=== PATIENT | male | born 1990 ===

== ENCOUNTER 2017-06-28 12:06 | Emergency (ER) | payer MEDICAID, OTHER ==
[2017-06-28 12:31] VITALS: BP 105/75; PULSE 65; RESP 16; TEMP 98.3; O2SAT 100
[2017-06-28] MEDS ORDERED: Lidocaine 1% Inj (20ml) IJ STA (12:38)
--- NOTE | 2017-06-28 12:46 | ED PDOC ---
HPI: Wound Care - HPI Time Seen by Provider: 06/28/17 12:33 Chief Complaint (Nursing): Abnormal Skin Integrity Chief Complaint (Provider): right hand laceration History Per: Patient Exam Limitations: no limitations, physical impairment Onset/Duration Of Symptoms: Mins Current Symptoms Are (Timing): Still Present Additional Complaint(s): Surjit Carrington, a 26 year old right hand dominant male, presents to the ED with a laceration to hand sustained when he was at work using a saw and accidentally cut his hand. Patient denies any numbness or tingling to affected area. He has mild throbbing pain to affected area. Tetanus is up to date. Past Medical History Reviewed: Historical Data, Nursing Documentation, Vital Signs Vital Signs: Last Vital Signs Temp 98.3 F 06/28/17 12:29 Pulse 65 06/28/17 12:29 Resp 16 06/28/17 12:29 BP 105/75 06/28/17 12:29 Pulse Ox 100 06/28/17 12:29 - Medical History PMH: No Chronic Diseases - Family History Family History: States: No Known Family Hx - Living Arrangements Living Arrangements: With Family - Social History Current smoker - smoking cessation education provided: No Alcohol: None Drugs: Denies - Immunization History Hx Tetanus Toxoid Vaccination: Yes - Home Medications Home Medications: Ambulatory Orders Medication Instructions Recorded No Known Home Med 06/28/17 - Allergies Allergies/Adverse Reactions: Allergies Allergy/AdvReac Type Severity Reaction Status Date / Time No Known Allergies Allergy Verified 06/28/17 12:29 Review of Systems ROS Statement: Except As Marked, All Systems Reviewed And Found Negative Musculoskeletal: Positive for: Other (Laceration to right hand) Physical Exam - Reviewed Nursing Documentation Reviewed: Yes Vital Signs Reviewed: Yes - Physical Exam Appears: Positive for: Non-toxic, No Acute Distress Skin: Positive for: Normal Color. Negative for: Rash Eye Exam: Positive for: Normal appearance Extremity: Positive for: Normal ROM (Full ROM of all digits of right hand.), Other (2 cm superficial laceration to dorsum of right hand overlying region of proximal first metacarpal; No active bleeding; irregular wound margins noted, normal sensation surrounding wound, normal distal sensation). Negative for: Tenderness, Deformity, Swelling Neurologic/Psych: Positive for: Alert, Oriented - ECG O2 Sat by Pulse Oximetry: 100 (RA) Pulse Ox Interpretation: Normal Procedure: Wound Repair - Time Performed Time Performed: 12:45 - Time Out Time Out: Side verified, Site verified, Patient ID confirmed, Sterile procedures obs. - Consent Obtained Consent obtained: Verbal - Performed by Performed by: Mid-level Provider - Indications Indication(s):: Laceration - Location Location:: Right, Hand Finger:: Thumb Dimensions Length cm: 2cm - Anesthetic Technique Local/Regional Anesthetic:: Lidocaine 1% - Debris Debris:: None Medical Decision Making Medical Decision Makin Initial Impression: 26 year old male presenting with laceration to right hand Initial Plan: * Lidocaine 1% 20ml IJ for lac repair Procedure Note: Under sterile conditions, laceration to right hand was anesthetized with 8 cc lidocaine without epinephrine injected locally. Good anesthesia was achieved. Wound was irrigated copiously with normal saline and Betadine, wound was explored, no foreign bodies noted. Wound margins were revised and excess nonviable tissue was excised. 5-0 nylon running suture was used to repair wound, good wound approximation was achieved, good bleeding control was achieved. Procedure tolerated well by patient with no acute complications. Patient was given wound care instructions and was instructed to take over-the- counter Tylenol or Advil for pain as needed. Advised wound check in 2-3 days and suture removal in 14 days. Patient is aware he can return to ED any time if acutely worse. _ Scribe Attestation Documented by Silvia Lucas acting as a scribe for Angeline Hernández PA-C. Scribe Attestation All medical record entries made by the Scribe were at my direction and personally dictated by me. I have reviewed the chart and agree that the record accurately reflects my personal performance of the history, physical exam, medical decision making, and the department course for this patient. I have also personally directed, reviewed, and agree with the discharge instructions and disposition. Disposition - Clinical Impression Clinical Impression: Hand laceration - Patient ED Disposition Is Patient to be Admitted: No Counseled Patient/Family Regarding: Diagnosis, Need For Followup - Disposition Referrals: [facility] [Outside] [facility], [facility] [Outside] Disposition: Routine/Home Disposition Time: 13:11 Condition: STABLE Additional Instructions: Keep area clean and dry. Advil for pain as needed. Wound check in 2-3 days. Suture removal 14 days. Instructions: Laceration (ED), Care For Your Stitches (ED) Forms: [email or web address] (Romansh) Print Language: [email or web address]
== END 2017-06-28 13:37 | disposition home or self-care (01) ==
LOC: H.ER 12:06
DX: S61.411A Laceration without foreign body of right hand, initial encounter (principal); W31.2XXA Contact with powered woodworking and forming machines, initial encounter; Y99.0 Civilian activity done for income or pay

== ENCOUNTER 2017-07-14 07:49 | Emergency (ER) | payer MEDICAID, OTHER ==
[2017-07-14 07:54] VITALS: BP 129/66; PULSE 64; TEMP 97; O2SAT 98
[2017-07-14 07:55] VITALS: BMI 26.7
[2017-07-14 09:02] VITALS: RESP 19
--- NOTE | 2017-07-14 09:03 | ED PDOC ---
HPI: Wound Care - HPI Time Seen by Provider: 07/14/17 08:00 Chief Complaint (Nursing): Finger,Hand,&Wrist Chief Complaint (Provider): suture removal History Per: Patient Exam Limitations: no limitations Location Of Injury: Right: Hand (thumb) Additional Complaint(s): Surjit Carrington is a 26 year old male, with no previous medical history, who presents to the ED for suture removal which he had placed on 06/28/17 for a laceration of his right thumb he sustained that day by a saw while at work. Patient denies any fevers or pain. He is right hand dominant. PMD:none provided Past Medical History Reviewed: Historical Data, Nursing Documentation, Vital Signs Vital Signs: Last Vital Signs Temp 97 F L 07/14/17 07:54 Pulse 64 07/14/17 07:54 Resp BP 129/66 07/14/17 07:54 Pulse Ox 98 07/14/17 07:54 - Medical History PMH: No Chronic Diseases - Surgical History Surgical History: No Surg Hx - Family History Family History: States: Unknown Family Hx - Immunization History Hx Tetanus Toxoid Vaccination: Yes - Home Medications Home Medications: Ambulatory Orders Medication Instructions Recorded No Known Home Med 06/28/17 - Allergies Allergies/Adverse Reactions: Allergies Allergy/AdvReac Type Severity Reaction Status Date / Time No Known Allergies Allergy Verified 06/28/17 12:29 Review of Systems ROS Statement: Except As Marked, All Systems Reviewed And Found Negative Constitutional: Negative for: Fever Musculoskeletal: Negative for: Hand Pain Physical Exam - Reviewed Nursing Documentation Reviewed: Yes Vital Signs Reviewed: Yes - Physical Exam Appears: Positive for: Well, Non-toxic, No Acute Distress Extremity: Positive for: Normal ROM, Capillary Refill (< 2 seconds ), Other ( right thumb appears to have had [address] but only 4 present at the time which were removed without difficulty. Wound is dry, clean and intact. ). Negative for: Tenderness, Deformity, Swelling Neurologic/Psych: Positive for: Alert, Oriented - ECG O2 Sat by Pulse Oximetry: 98 (RA) Pulse Ox Interpretation: Normal Medical Decision Making Medical Decision Making: Initial Impression: Suture removal 4 sutures removed from the right thumb. wound is clean, dry and intact with no surrounding erythema. Patient tolerated procedure well with no complications and is stable for discharge. Scribe Attestation: Documented by Beverly Hardwick, acting as a scribe for Lary Curiel MD. Provider Scribe Attestation: All medical record entries made by the Scribe were at my direction and personally dictated by me. I have reviewed the chart and agree that the record accurately reflects my personal performance of the history, physical exam, medical decision making, and the department course for this patient. I have also personally directed, reviewed, and agree with the discharge instructions and disposition. Disposition - Clinical Impression Clinical Impression: Visit for suture removal - Patient ED Disposition Is Patient to be Admitted: No Counseled Patient/Family Regarding: Studies Performed, Diagnosis, Need For Followup - Disposition Disposition: Routine/Home Disposition Time: 08:00 Condition: IMPROVED Additional Instructions: follow up with your primary doctor return to the ED with any worsening or concerning symptoms such as fever, purulent discharge or other concerning symptoms Instructions: Stitches Removal (ED) Forms: [email or web address] (French) Print Language: [email or web address]
== END 2017-07-14 09:09 | disposition home or self-care (01) ==
LOC: H.ER 07:49
DX: Z48.02 Encounter for removal of sutures (principal)